=== PATIENT | male | born 1945 ===

== ENCOUNTER 2018-05-24 06:10 | Day surgery (SDC) | payer MEDICARE ==
[2018-05-24] MEDS ORDERED: IV LACTATED RINGERS SOLUTION 1,000 ML BAG IV ONE (06:11)
[2018-05-24] MEDS ORDERED: FLURBIPROFEN 0.03% OPHT DROP 2.5 ML BOTTLE ONE (06:46)
[2018-05-24] MEDS ORDERED: CIPROFLOXACIN 0.3% OPHT DROP 2.5 ML BOTTLE ONE (06:46)
[2018-05-24] MEDS ORDERED: TROPICAMIDE 1% OPHT DROP 3 ML BOTTLE ONE (06:46)
[2018-05-24] MEDS ORDERED: CYCLOPENTOLATE 1% OPHT DROP 2 ML BOTTLE ONE (06:46)
[2018-05-24] MEDS ORDERED: BALANCED SALT IRRIG SOLN COMB1 500 ML, EPINEPHRINE-PF 1:1000 0.5 MG IO ONE ×2 (07:00)
[2018-05-24] MEDS ORDERED: MOXIFLOXACIN HCL 3 ML OPHT DROPS ONE (07:14)
[2018-05-24] MEDS ORDERED: LIDOCAINE-MPF 2% 5 ML VIAL ONE (07:14)
[2018-05-24] MEDS ORDERED: TETRACAINE HCL 0.5% OPHT DROP 2 ML BOTTLE ONE ×2 (07:15→08:21)
[2018-05-24] MEDS ORDERED: NEO/POLYMYX B/DEXAME OPHT OINT 3.5 GM TUBE ONE (07:15)
[2018-05-24] MEDS ORDERED: ACETYLCHOLINE CHLORIDE 1% OPHT 1 EA KIT ONE (07:15)
[2018-05-24] MEDS ORDERED: TIMOLOL MALEATE 0.5% OPHT DROP 5 ML BOTTLE ONE (07:15)
[2018-05-24] MEDS ORDERED: BALANCED SALT IRRIG SOLN COMB2 15 ML IRRIG.SOLN ONE (07:15)
[2018-05-24] MEDS ORDERED: HYALURONATE SODIUM 8.5 MG/0.85 ML DISP.SYRIN ONE (07:16)
[2018-05-24] MEDS ORDERED: HYALURONIDASE,OVINE 200 UNITS/ML VIAL ONE (07:16)
[2018-05-24] MEDS ORDERED: BUPIVACAINE PF 0.5% 30 ML VIAL ONE (07:16)
[2018-05-24] MEDS ORDERED: HYALURONATE SODIUM 12.8 MG/0.8 ML DISP.SYRIN ONE (07:16)
[2018-05-24] MEDS ORDERED: FENTANYL CITRATE 100 MCG/2 ML AMPUL ONE (07:53)
[2018-05-24] MEDS ORDERED: BALANCED SALT IRRIG SOLN COMB1 500 ML ONE (08:36)
== END 2018-05-24 10:30 | disposition home or self-care (01) ==
LOC: DS 06:10
PROVIDERS: ATTEND Ophthalmology
DX: H25.011 Cortical age-related cataract, right eye (principal); I10 Essential (primary) hypertension; M19.042 Primary osteoarthritis, left hand; M19.041 Primary osteoarthritis, right hand; E78.5 Hyperlipidemia, unspecified; Z98.890 Other specified postprocedural states; Z79.899 Other long term (current) drug therapy
CPT/HCPCS: 36415; 71045; 84132; A4663; J0171; J3010; J3471; J3490; J7120; J7321; V2632